=== PATIENT | male | born 2000 | race Caucasian/White ===

== ENCOUNTER 2025-08-09 18:51 | Emergency (ER) | payer BC ==
[2025-08-09] MEDS ORDERED: HYDROcodone/Acetaminophen 5/325 mg Tablet ONE (19:32)
[2025-08-09] MEDS ORDERED: Bacitracin 1 PK ONE (20:05)
== END 2025-08-09 20:21 | disposition home or self-care (01) ==
LOC: ERS 18:51
DX: S52.122A Displaced fracture of head of left radius, initial encounter for closed fracture (principal); S80.812A Abrasion, left lower leg, initial encounter; V26.49XA Other motorcycle driver injured in collision with other nonmotor vehicle in traffic accident, initial encounter
CPT/HCPCS: 99283